=== PATIENT | female | born 1995 | race Caucasian/White ===

== ENCOUNTER 2018-10-24 08:20 | Emergency (ER) | payer OTHER ==
[~2018-10-24] VITALS: Ht 162.6 cm; Wt 85.3 kg
--- NOTE | 2018-10-24 08:30 | NUR ---
[id number], came to er c/o Headache "I have been having migraine ALVARADO for last couple days been getting worse everytime and happening like once a month +nausea". RR is even and unlabored with NAD noted. Skin is warm and dry. AWaiting md for eval.
--- NOTE | 2018-10-24 08:37 | NUR ---
SEEN AND EXAMINED BY DR. [place].
[2018-10-24] MEDS ORDERED: METOCLOPRAMIDE HCL 10 MG/2 ML VIAL IV ONE (09:00)
[2018-10-24] MEDS ORDERED: diphenhydrAMINE HCL 50 MG/ML VIAL IV ONE (09:00)
[2018-10-24] MEDS ORDERED: KETOROLAC TROMETHAMINE INJ 30 MG/ML VIAL IV ONE (09:00)
[2018-10-24] MEDS ORDERED: IV NS 0.9% 1,000 ML BAG IV ONE (09:00)
--- NOTE | 2018-10-24 09:00 | NUR ---
Benadryl, Toradol and Reglan cancelled per Dr Kinney order.
[2018-10-24 09:58] LABS: APPEARANCE,URINE Clear (CLEAR); BILIRUBIN,URINE Negative (NEGATIVE); BLOOD, URINE Negative Ery/uL (NEGATIVE); COLOR,URINE Yellow (YELLOW); KETONES,URINE Negative (NEGATIVE); LEUKOCYTE ESTERASE ,URINE Moderate (NEGATIVE); NITRITE, URINE Negative (NEGATIVE); PROTEIN,URINE Negative (NEGATIVE); UGLUCOSE Negative (NEGATIVE); UROBILINOGEN,URINE 0.2 EU/dL (0.2)
[2018-10-24] MEDS ORDERED: ONDANSETRON HCL/PF 4 MG/2 ML VIAL ONE (09:59)
[2018-10-24] MEDS ORDERED: ACETAMINOPHEN 325 MG TABLET ONE (09:59)
[2018-10-24] MEDS ORDERED: DEXAMETHASONE SOD PHOSPHATE 10 MG/ML VIAL IV ONE (10:00)
[2018-10-24] MEDS ORDERED: ONDANSETRON HCL/PF 4 MG/2 ML VIAL IV ONE (10:00)
[2018-10-24] MEDS ORDERED: ACETAMINOPHEN 650 MG/20.3 ML UDC PO ONE (10:00)
[2018-10-24 10:18] LABS: BACTERIA,URINE Rare /HPF (None Seen); RBC,URINE NONE SEEN /HPF (0-2); SQUAMOUS EPITHELIAL CELL,UR Few /HPF (None Seen)
--- NOTE | 2018-10-24 10:20 | NUR ---
IV removed. Catheter intact and site benign. Pressure and 4x4 applied to site. No bleeding noted.Patient discharged to home in stable condition. Written and verbal after care instructions given. Patient verbalizes understanding of instruction.
[2018-10-24 10:24] VITALS: BP 128/70
== END 2018-10-24 10:28 | disposition home or self-care (01) ==
LOC: ER 08:23
DX: O99.351 Diseases of the nervous system complicating pregnancy, first trimester (principal); G43.909 Migraine, unspecified, not intractable, without status migrainosus; Z88.2 Allergy status to sulfonamides
CPT/HCPCS: 81001; 84703; 87086; 96374; 99283; A4606; J1100; J2405; J7030; 81000-TC

== ENCOUNTER 2019-10-26 21:07 | Emergency (ER) | payer OTHER ==
[~2019-10-26] VITALS: Ht 162.6 cm; Wt 70.3 kg
--- NOTE | 2019-10-26 21:30 | NUR ---
BIBS FOR C/O H/A AND GENERALIZED BODY PAIN. - COUGH,. - CP. PT WAS PLACED ON A MONITOR ,.
[2019-10-26] MEDS ORDERED: PROCHLORPERAZINE EDISYLATE 10 MG/2 ML VIAL ONE (21:43)
[2019-10-26] MEDS ORDERED: diphenhydrAMINE HCL 50 MG/ML VIAL ONE (21:43)
[2019-10-26] MEDS ORDERED: DEXAMETHASONE SOD PHOSPHATE 4 MG/ML VIAL ONE (21:43)
[2019-10-26] MEDS ORDERED: KETOROLAC TROMETHAMINE INJ 30 MG/ML VIAL ONE (21:43)
[2019-10-26] MEDS ORDERED: PROCHLORPERAZINE EDISYLATE 10 MG/2 ML VIAL IVP ONE (22:00)
[2019-10-26] MEDS ORDERED: IV NS 0.9% 1,000 ML BAG IV ONE (22:00)
[2019-10-26] MEDS ORDERED: KETOROLAC TROMETHAMINE INJ 30 MG/ML VIAL IV ONE (22:00)
[2019-10-26] MEDS ORDERED: DEXAMETHASONE SOD PHOSPHATE 4 MG/ML VIAL IV ONE (22:00)
[2019-10-26] MEDS ORDERED: diphenhydrAMINE HCL 50 MG/ML VIAL IV ONE (22:00)
--- NOTE | 2019-10-26 22:10 | NUR ---
X RAYU AT THE BED SIDE
--- NOTE | 2019-10-26 22:37 | NUR ---
Patient is resting comfortably in bed with eyes closed. Easily aroused. VSS
--- NOTE | 2019-10-26 23:30 | NUR ---
URBANO HINES PAC at the bed side
--- NOTE | 2019-10-26 23:51 | NUR ---
IV removed. Catheter intact and site benign. Pressure and 4x4 applied to site. No bleeding noted.Patient discharged to home in stable condition. Rx and Written and verbal after care instructions given. Patient verbalizes understanding of instruction. kannanen will provide ride to the pt.
[2019-10-26 23:53] VITALS: BP 106/66
== END 2019-10-26 23:53 | disposition home or self-care (01) ==
LOC: ER 21:10
DX: B34.8 Other viral infections of unspecified site (principal); R51 Headache; Z88.2 Allergy status to sulfonamides
CPT/HCPCS: 71045; 87804 ×2; 96374; 96375; 99285; A4216; J0780; J1100; J1200; J1885; J7030